=== PATIENT | male | born 1985 | race African-American/Black ===

== ENCOUNTER 2017-07-31 01:35 | Emergency (ER) | payer OTHER ==
[~2017-07-31] VITALS: Ht 182.9 cm; Wt 95.3 kg
[2017-07-31] MEDS ORDERED: SYMBICORT160 MCG/4. INH (01:49)
[2017-07-31 02:13] LABS: ABSOLUTE NEUTROPHILS 2.9 thou/uL (1.4-8.2); BASOPHILS 0.8 % (0.0-2.0); EOSINOPHILS 2.8 % (0.0-3.0); HEMATOCRIT 44.4 % (42.0-52.0); HEMOGLOBIN 14.4 gm/dL (14.0-18.0); LYMPHOCYTES 37.2 % (24.0-44.0); MCH 26.4 pg (26.0-34.0); MCHC 32.5 g/dL (28.0-37.0); MCV 81.3 fL (80.0-100.0); MONOCYTES 7.7 % (1.0-8.0); PLATELET COUNT 341 thou/uL (150-400); POLYS 51.5 % (36.0-66.0); RBC 5.45 mil/uL (4.50-6.00); WBC 5.6 thou/uL (4.0-11.0)
[2017-07-31 02:17] LABS: CALCIUM 8.6 mg/dL (8.5-10.1); CREATININE 0.9 mg/dL (0.7-1.3); POTASSIUM 3.6 mmol/L (3.5-5.1)
[2017-07-31 02:24] LABS: ALBUMIN 3.9 g/dL (3.4-5.0); DIRECT BILIRUBIN 0.2 mg/dL (<0.1-0.3); TOTAL BILIRUBIN 0.9 mg/dL (<0.1-1.0); TOTAL PROTEIN 7.7 g/dL (6.4-8.2)
[2017-07-31] MEDS ORDERED: ZOFRAN ODT4 MG PO (03:06)
[2017-07-31 03:26] VITALS: BP 118/77
== END 2017-07-31 03:30 | disposition home or self-care (01) ==
LOC: ER 01:35
PROVIDERS: Emergency Medicine
DX: R11.0 Nausea (principal); R42 Dizziness and giddiness; K59.00 Constipation, unspecified; R10.13 Epigastric pain; K21.9 Gastro-esophageal reflux disease without esophagitis; F17.210 Nicotine dependence, cigarettes, uncomplicated

== ENCOUNTER 2018-04-15 22:12 | Emergency (ER) | payer OTHER ==
[~2018-04-15] VITALS: Ht 182.9 cm; Wt 95.3 kg
[~2018-04-15 22:12] MED LIST: SYMBICORT160 MCG/4. INH; ZOFRAN ODT4 MG PO
[2018-04-15] MEDS ORDERED: EXCEDRIN CAPLE1 EACH PO (22:16)
[2018-04-15] MEDS ORDERED: BUTALB-APAP-CA1 EACH PO (23:52)
[2018-04-16 00:02] VITALS: BP 132/75
== END 2018-04-16 00:05 | disposition home or self-care (01) ==
LOC: ER 22:12
DX: R51 Headache (principal); R42 Dizziness and giddiness; J45.909 Unspecified asthma, uncomplicated; F17.210 Nicotine dependence, cigarettes, uncomplicated